=== PATIENT | male | born 1950 | race African-American/Black ===

== ENCOUNTER 2017-08-28 10:25 | Day surgery (SDC) | payer MEDICARE ==
[~2017-08-28 10:25] MED LIST: ceFAZolin 2 GM in NACL 0.9% 100 ML IV NR
--- NOTE | 2017-08-28 11:13 | Anesthesia Consultation ---
Anesthesia Consult and Med Hx Date of service: 08/28/17 - Airway Anesthetic Teeth Evaluation: Good ROM Head & Neck: Adequate Mental/Hyoid Distance: Adequate Mallampati Class: Class II Intubation Access Assessment: Probably Good - Pulmonary Exam CTA: Yes - Cardiac Exam Cardiac Exam: RRR - Pre-Operative Health Status ASA Pre-Surgery Classification: ASA2 Proposed Anesthetic Plan: General - Pulmonary Hx Smoking: No - Cardiovascular System Hx Hypertension: Yes Hx Heart Attack/AMI: No (EF 60%) - Central Nervous System Hx Seizures: No CVA: No - Other Systems Hx Alcohol Use: Yes (occassional) - Additional Comments Anesthesia Medical History Comments: Pt denies any familial anesthesia complication
--- NOTE | 2017-08-28 11:13 | Anesthesia Day of Surgery ---
Anesthesia Day of Surgery - Day of Surgery Patient Examined: Yes Patient H&P Reviewed: Yes Patient is NPO: Yes
[2017-08-28] MEDS ORDERED: MARCAINE 0.5% 30 ML INFILTRATI ONE (11:54)
[2017-08-28] MEDS ORDERED: LACTATED RINGERS 1,000 ML IV SCH (12:00)
[2017-08-28] MEDS ORDERED: VERSED IV NR (12:00)
[2017-08-28] MEDS ORDERED: PEPCID PO NR (12:00)
[2017-08-28] MEDS ORDERED: ZOFRAN ONE (12:30)
[2017-08-28] MEDS ORDERED: XYLOCAINE MPF 2% ONE (12:30)
[2017-08-28] MEDS ORDERED: SUBLIMAZE ONE (12:30)
[2017-08-28] MEDS ORDERED: ROBINUL ONE ×2 (12:30→13:33)
[2017-08-28] MEDS ORDERED: ZEMURON IV ONE (12:30)
[2017-08-28] MEDS ORDERED: DIPRIVAN 10 MG/ML IV ONE (12:30)
[2017-08-28] MEDS ORDERED: NEOSTIGMINE ONE (12:30)
[2017-08-28] MEDS ORDERED: DECADRON ONE (12:31)
[2017-08-28] MEDS ORDERED: MARCAINE 0.5% INFILTRATI ONE (13:06)
[2017-08-28] MEDS ORDERED: NACL 0.9% IR ONE ×2 (13:06→13:31)
[2017-08-28] MEDS ORDERED: DILAUDID ONE ×2 (13:09→14:09)
--- NOTE | 2017-08-28 13:40 | Discharge Summary ---
Short Stay Discharge Plan Activity: other (observe x 4 hrs then february d/c if stable. ice chips today, cl liq in am. solid low fat diet in 48hrs. keep dressings dry x 5 days. no lifting over 5 lbs x 2 wks) Weight Bearing Status: Partial Weight Bearing Diet: other Wound: keep clean and dry Additional Instructions: aleve I po q 6-8 hrs prn for breakthrough pain. Follow up with: HUONG BUENO MD [Staff Physician] - 09/02/17
[2017-08-28] MEDS ORDERED: DILAUDID IV PRN (14:12)
[2017-08-28] MEDS ORDERED: NORCO 5/325 PO PRN (14:13)
--- NOTE | 2017-08-28 17:02 | Operative Report ---
PREOPERATIVE DIAGNOSIS: Gallbladder disease. POSTOPERATIVE DIAGNOSIS: Gallbladder disease. PROCEDURE: Laparoscopic cholecystectomy. SURGEON: Kulwinder Childers MD. BOOKING SUPERVISOR: Dr. Gayle. ANESTHESIA: General. ESTIMATED BLOOD LOSS: Minimal. DRAINS: None. COMPLICATIONS: None. DESCRIPTION OF PROCEDURE: The patient was taken to the operating room, prepped and draped in usual sterile fashion. A Veress needle was inserted and CO2 insufflation begun. A 5 mm trocar was then inserted and camera inserted. All other trocars were inserted under direct visualization. Gallbladder was then grasped at the fundus and infundibulum and retracted towards the right subphrenic space. Some omental adhesions were noted on the undersurface of the gallbladder. These were slowly dissected free without incident. Attention was then focused to Calot's triangle. The cystic duct and artery were delineated in their entire course. Both were then doubly clipped and transected. Hook electrocautery was used to dissect the gallbladder from the overlying liver bed. Prior to complete removal, the liver bed was inspected for bleeding and noted to be dry. The cystic duct and artery stumps were once again visualized. The clips were noted to be securely in place with no evidence of bleeding or bile leak. The entire area was irrigated copiously and dry. Checked for hemostasis and noted to be dry. Gallbladder was then brought out through the subxiphoid port. This area was inspected for bleeding and noted to be dry. Subxiphoid trocar was then gently reinserted. All other trocars were removed under direct visualization. No bleeding or oozing noted. Subxiphoid trocar was then used to expel the CO2 and the trocar removed. The fascia at this site was closed with a [id number] 3-0 Vicryl suture. Marcaine 0.5% was infiltrated over the port site for postoperative pain relief. The patient tolerated the procedure well and left OR in stable condition. JOB# [id number]
[2017-08-28 17:19] VITALS: BP 151/85
== END 2017-08-28 17:22 | disposition home or self-care (01) ==
LOC: OR 10:25
PROVIDERS: ATTEND Surgery
DX: K80.10 Calculus of gallbladder with chronic cholecystitis without obstruction (principal); I10 Essential (primary) hypertension; E66.3 Overweight; Z68.27 Body mass index [BMI] 27.0-27.9, adult; Z79.899 Other long term (current) drug therapy
CPT/HCPCS: 47562; 88304; A4217; J1100; J1170; J2250; J2405; J2704; J2710; J3010; J7120